=== PATIENT | male | born 1990 | race Caucasian/White ===

== ENCOUNTER 2023-09-23 17:28 | Emergency (ER) | payer OTHER ==
[~2023-09-23] VITALS: Ht 162.6 cm; Wt 65.3 kg
[2023-09-23] MEDS ORDERED: LORAZEPAM INJ 2 MG/ML VIAL ONE (17:38)
[2023-09-23] MEDS: IV NS 0.9% 1,000 ML BAG IV ONE (17:43)
[2023-09-23] MEDS: LORAZEPAM INJ 2 MG/ML VIAL IV ONE (17:43)
[2023-09-23 22:03] VITALS: BP 121/70; TEMP 98.2; O2SAT 99
== END 2023-09-23 22:03 | disposition home or self-care (01) ==
LOC: ER 17:30
DX: F12.129 Cannabis abuse with intoxication, unspecified (principal); R00.2 Palpitations; R42 Dizziness and giddiness; F22 Delusional disorders; F41.9 Anxiety disorder, unspecified
CPT/HCPCS: 99283; 96374; 96361; 93005; J2060; J7030